=== PATIENT | male | born 1965 | race Caucasian/White ===

== ENCOUNTER 2016-09-05 22:37 | Emergency (ER) | payer MEDICAID ==
[~2016-09-05] VITALS: Ht 185.4 cm; Wt 77.1 kg
[2016-09-05 22:41] VITALS: BP 160/105
[2016-09-05] MEDS ORDERED: ZANTAC150 MG ORAL (23:05)
--- NOTE | 2016-09-05 23:06 | Emergency Room Report ---
History of Present Illness General Chief Complaint: Abdominal Pain Source: Patient Present Illness HPI Is a 51-year-old male with a history of alcohol and drug abuse. He also said that he has a psych history not his medication. He presents with chief complaint of abdominal pain. He called 911 for [employer] [facility] without a problem. Also been drinking tonight. Denies any fever or chills. Denies any nausea vomiting. No diarrhea. No other complaint. Pain is 7/10. Patient History Past Medical History: see triage record, old chart reviewed, psych hx Past Surgical History: other Pertinent Family History: none Social History: Reports: alcohol use, drug use, smoking Immunizations: other Reviewed Nursing Documentation: PMH: Agreed, PSxH: Agreed Nursing Documentation-PMH Past Medical History: No History, Except For Hx Hypertension: Yes History Of Psychiatric Problem: Yes - Paranoid shizophrenia Review of Systems Eye: Denies: blurred vision, eye pain ENT: Denies: ear pain, nose congestion, throat swelling Respiratory: Denies: cough, shortness of breath Cardiovascular: Denies: chest pain, palpitations Gastrointestinal: Reports: abdominal pain, Denies: diarrhea, nausea, vomiting Musculoskeletal: Denies: back pain, joint pain Skin: Denies: rash Neurological: Denies: headache, numbness Endocrine: Denies: increased thirst, increased urine Hematologic/Lymphatic: Denies: easy bruising All Other Systems: negative except mentioned in HPI Physical Exam Vital Signs Date Time Temp Pulse Resp B/P Pulse Ox O2 Delivery O2 Flow Rate FiO2 09/05/16 22:31 97.3 90 16 177/110 97 Room Air vitals normal Sp02 EP Interpretation: reviewed, normal General Appearance: well appearing, no apparent distress, alert Head: normocephalic, atraumatic Eyes: bilateral eye EOMI, bilateral eye PERRL ENT: hearing grossly normal, normal pharynx Neck: full range of motion, supple, no meningismus Respiratory: chest non-tender, lungs clear, normal breath sounds Cardiovascular #1: regular rate, rhythm, no murmur Gastrointestinal: normal bowel sounds, no mass, no organomegaly, no bruit, non- distended, tenderness - Mild, diffuse. No pain however when I use my stethoscope Musculoskeletal: back normal, gait/station normal, normal range of motion Psychiatric: mood/affect normal Skin: warm/dry Medical Decision Making Diagnostic Impression: Primary Impression: Abdominal pain of unknown etiology Additional Impressions: Alcohol abuse Methamphetamine abuse ER Course Patient present with abdominal pain. He is asking for food here. Eating drinking without a problem. No evidence of acute abdomen. No evidence of obstruction. We'll discharge home to Last Vital Signs Date Time Temp Pulse Resp B/P Pulse Ox O2 Delivery O2 Flow Rate FiO2 09/05/16 22:41 97.7 94 20 160/105 99 Room Air Status: improved Disposition: HOME, SELF-CARE Condition: Stable Scripts Ranitidine Hcl* (ZANTAC*) 150 Mg Tablet 150 MG ORAL TWICE A DAY, #30 TAB Prov: RAYNA OCHOA M.D. 09/05/16 Patient Instructions: Abdominal Pain, Adult Additional Instructions: Abstain from drugs and alcohol. Followup with your DrJenny in 7 days. Return if worse. RAYNA OCHOA M.D. Sep 05, 2016 23:06
[2016-09-06 00:02] VITALS: BP 152/102
[2016-09-06] MEDS ORDERED: NKM (01:30)
== END 2016-09-06 00:02 | disposition home or self-care (01) ==
LOC: EDBD 22:37 → EMR 23:13
DX: R10.9 Unspecified abdominal pain (principal); F10.10 Alcohol abuse, uncomplicated; F15.10 Other stimulant abuse, uncomplicated; I10 Essential (primary) hypertension; F17.200 Nicotine dependence, unspecified, uncomplicated
CPT/HCPCS: 99282

== ENCOUNTER 2016-09-06 01:16 | Emergency (ER) | payer MEDICAID ==
[~2016-09-06] VITALS: Ht 185.4 cm; Wt 77.1 kg
[~2016-09-06 01:16] MED LIST: ZANTAC150 MG ORAL
[2016-09-06] MEDS ORDERED: NKM (01:30)
[2016-09-06 02:16] LABS: BASOPHILS % (AUTO) 1.7 % (0.0-2.0); LYMPHOCYTES % (AUTO) 27.4 % (20.0-45.0); MEAN CORPUSCULAR HEMOGLOBIN 27.2 PG (27.0-31.0); MEAN CORPUSCULAR HGB CONC 31.9 G/DL (32.0-36.0); MEAN CORPUSCULAR VOLUME 85 FL (80-99); MEAN PLATELET VOLUME 7.4 FL (6.5-10.1); MONOCYTES % (AUTO) 12.7 % (1.0-10.0); NEUTROPHILS % (AUTO) 58.2 % (45.0-75.0); PLATELET COUNT 158 K/UL (150-450); RED BLOOD COUNT 5.06 M/UL (4.70-6.10); RED CELL DISTRIBUTION WIDTH 15.1 % (11.6-14.8); WHITE BLOOD COUNT 5.3 K/UL (4.8-10.8)
--- NOTE | 2016-09-06 02:22 | Emergency Room Report ---
History of Present Illness General Chief Complaint: Behavioral Complaint Source: Patient Present Illness HPI This is a 51-year-old male with a history of alcohol and drug abuse. He also a history of schizophrenia. He was at a psychiatric facility for months ago. He was at [facility] and called 911 because abdominal pain. He came here he was eating without a problem. Denies any psychiatric issue always here. I discharged him. He left in call 911 because he said now he felt suicidal and hearing voices. No voices is telling him to jump off a bridge. This is ongoing for a while. Denies any other complaint. Police placed him on a 5150. Allergies: Coded Allergies: CODEINE (Verified Allergy, Mild, 09/06/16) Patient History Past Medical History: see triage record, old chart reviewed, psych hx Past Surgical History: other Family History: none Social History: tobacco use, ETOH, drug use Immunizations: other Reviewed Nursing Documentation: PMH: Agreed, PSxH: Agreed Nursing Documentation-PMH Hx Hypertension: Yes History Of Psychiatric Problem: Yes - PTSD, Schizoeffective, Bipolar Review of Systems ENT: Denies: sore throat Cardiovascular: Denies: chest pain, palpitations Gastrointestinal/Abdominal: Denies: diarrhea, nausea, vomiting Musculoskeletal: Denies: back problems Skin: Denies: rash Psychiatric: Reports: hallucinations, suicidal/homicidal ideations Neurological: Denies: KENNEY, seizures All Other Systems: negative except mentioned in HPI Physical Exam Vital Signs Date Time Temp Pulse Resp B/P Pulse Ox O2 Delivery O2 Flow Rate FiO2 09/06/16 01:23 97.5 88 12 141/96 100 Room Air vitals normal Sp02 EP Interpretation: reviewed, normal General Appearance: alert/responsive, no apparent distress, non-toxic Head: normocephalic, atraumatic Eyes: PERRL, EOMI ENT: oropharynx normal Neck: supple/symm/no masses Respiratory: effort normal, no rhonchi, no wheezing Cardiovascular: no murmur, gallop, rub Gastrointestinal: non-tender, no mass, non-distended, no rebound/guarding, normal bowel sounds Musculoskeletal: gait & station normal Neurologic: oriented x3, sensory intact, motor strength/tone normal Suicide Risk Assessment: Suicidal Ideation: Yes Had intent to initiate attempt: Yes Pt's plan for suicide attempt: Yes Has means to complete attempt: No Skin: no rash, normal palpation Medical Decision Making Diagnostic Impression: Primary Impression: Methamphetamine abuse Additional Impressions: Alcohol abuse Psychosis Qualified Codes: F23 - Brief psychotic disorder Suicidal behavior Qualified Codes: R46.89 - Other symptoms and signs involving appearance and behavior Abdominal pain of unknown etiology ER Course Patient presents with alcohol and drug abuse. Patient is currently on a 5150 hold. We'll get psychiatric evaluation in the morning. Last Vital Signs Date Time Temp Pulse Resp B/P Pulse Ox O2 Delivery O2 Flow Rate FiO2 09/06/16 01:23 97.5 88 12 141/96 100 Room Air Status: improved Disposition: XFER TO PSYCH HOSP/UNIT Condition: Stable Referrals: [facility],REFERRING (PCP) RAYNA OCHOA M.D. Sep 06, 2016 02:22
[2016-09-06 02:31] LABS: ACETAMINOPHEN < 10 ug/mL (10-30); ALANINE AMINOTRANSFERASE 72 U/L (3-41); ALBUMIN/GLOBULIN RATIO 1.1 (1.0-2.7); ALCOHOL < 10 mg/dL; ANION GAP 13 (5-15); ASPARTATE AMINO TRANSFERASE 74 U/L (5-40); CALCIUM 9.2 mg/dL (8.6-10.2); CARBON DIOXIDE 28 mEQ/L (20-30); CHLORIDE 99 mEQ/L (98-107); CREATININE 1.1 mg/dL (0.7-1.2); GLOMERULAR FILTRATION RATE > 60 mL/min (>60); HEMOLYSIS 6; POTASSIUM 3.4 mEQ/L (3.4-4.9); SODIUM 140 mEQ/L (135-145); TOTAL PROTEIN 7.4 g/dL (6.6-8.7)
[2016-09-06 04:09] VITALS: BP 125/75
[2016-09-06 06:18] VITALS: BP 128/86
[2016-09-06 08:00] VITALS: BP 127/81
--- NOTE | 2016-09-06 11:03 | Consultation ---
History of Present Illness General Chief Complaint: Behavioral Complaint Present Illness HPI 51 yo male with hx of meth and alcohol use for the pat 8 year. the pt looks much older than his age. the pt was placed on 5150 for dts and was sent to [facility]. He was sent back to our er as the [place] pd was not valid there. During the eval the pt didn't endorse si or psychotic sxs. he stated that "I would like to go [facility]" " I need a drug rehab not a psych hospital" the pt has no suicide attempt in the past, he stated that he is hearing voices only "when i take meth. when I go to psych hospitals they give drugs that I don't need." the pt was rational and is able to answer questions appropriately. the pt has good insight and knows what recourses are available to him. Allergies: Coded Allergies: CODEINE (Verified Allergy, Mild, 09/06/16) Medication History Scheduled No Known Medications* (NKM - No Known Medications*), 0 ., (Reported) Ranitidine Hcl* (Zantac*), 150 MG ORAL TWICE A DAY Patient History History Provided By: Patient, PMD Healthcare decision maker Resuscitation status Advanced Directive on File Past Medical/Surgical History Past Medical/Surgical History: (1) Alcohol abuse (2) Methamphetamine abuse (3) Abdominal pain of unknown etiology Review of Systems All Other Systems: negative except mentioned in HPI Physical Exam General Appearance: no apparent distress, lethargic Neurologic: alert, oriented x 3, responsive, normal mood/affect Last 24 Hour Vital Signs Date Time Temp Pulse Resp B/P Pulse Ox O2 Delivery O2 Flow Rate FiO2 09/06/16 09:07 97.8 89 18 127/81 100 Room Air 09/06/16 08:00 97.8 89 18 127/81 100 Room Air 09/06/16 06:18 95 15 128/86 97 Room Air 09/06/16 04:09 97.2 87 16 125/75 99 Room Air 09/06/16 01:23 97.5 88 12 141/96 100 Room Air Intake and Output 09/05/16 09/06/16 19:00 07:00 # Voids 1 Laboratory Tests Test 09/06/16 02:10 White Blood Count 5.3 K/UL (4.8-10.8) Red Blood Count 5.06 M/UL (4.70-6.10) Hemoglobin 13.8 G/DL (14.2-18.0) L Hematocrit 43.1 % (42.0-52.0) Mean Corpuscular Volume 85 FL (80-99) Mean Corpuscular Hemoglobin 27.2 PG (27.0-31.0) Mean Corpuscular Hemoglobin Concent 31.9 G/DL (32.0-36.0) L Red Cell Distribution Width 15.1 % (11.6-14.8) H Platelet Count 158 K/UL (150-450) Mean Platelet Volume 7.4 FL (6.5-10.1) Neutrophils (%) (Auto) 58.2 % (45.0-75.0) Lymphocytes (%) (Auto) 27.4 % (20.0-45.0) Monocytes (%) (Auto) 12.7 % (1.0-10.0) H Eosinophils (%) (Auto) 0.0 % (0.0-3.0) Basophils (%) (Auto) 1.7 % (0.0-2.0) Sodium Level 140 mEQ/L (135-145) Potassium Level 3.4 mEQ/L (3.4-4.9) Chloride Level 99 mEQ/L (98-107) Carbon Dioxide Level 28 mEQ/L (20-30) Anion Gap 13 (5-15) Blood Urea Nitrogen 15 mg/dL (7-23) Creatinine 1.1 mg/dL (0.7-1.2) Estimat Glomerular Filtration Rate > 60 mL/min (>60) Glucose Level 81 mg/dL (74-106) Calcium Level 9.2 mg/dL (8.6-10.2) Total Bilirubin 0.4 mg/dL (0.0-1.2) Aspartate Amino Transf (AST/SGOT) 74 U/L (5-40) H Alanine Aminotransferase (ALT/SGPT) 72 U/L (3-41) H Alkaline Phosphatase 70 U/L (40-129) Total Protein 7.4 g/dL (6.6-8.7) Albumin 3.9 g/dL (3.5-5.2) Globulin 3.5 g/dL Albumin/Globulin Ratio 1.1 (1.0-2.7) Salicylates Level < 1 mg/dL (10-30) L Urine Opiates Screen Negative (NEGATIVE) Acetaminophen Level < 10 ug/mL (10-30) L Urine Barbiturates Screen Negative (NEGATIVE) Phencyclidine (PCP) Screen Negative (NEGATIVE) Urine Amphetamines Screen Positive (NEGATIVE) H Urine Benzodiazepines Screen Negative (NEGATIVE) Urine Cocaine Screen Negative (NEGATIVE) Urine Marijuana (THC) Screen Positive (NEGATIVE) H Serum Alcohol < 10 mg/dL Height (Feet): 6 Height (Inches): 1.00 Weight (Pounds): 170 Assessment/Plan Status: doing well, stable Assessment/Plan meth induced psychosis -will lift the 5150, as the pt is not at immanent dts/dto -rec to dc the pt -no meds needed - the pt will do to [facility], he will take the bus. Quyen Silvestre M.D. Sep 06, 2016 11:03
[2016-09-06 11:16] VITALS: BP 127/81
== END 2016-09-06 09:11 ==
LOC: EMR 01:56
DX: F15.10 Other stimulant abuse, uncomplicated (principal); F10.10 Alcohol abuse, uncomplicated; F29 Unspecified psychosis not due to a substance or known physiological condition; R45.851 Suicidal ideations; F25.9 Schizoaffective disorder, unspecified; F31.9 Bipolar disorder, unspecified; F43.10 Post-traumatic stress disorder, unspecified; I10 Essential (primary) hypertension; R10.9 Unspecified abdominal pain; Z88.6 Allergy status to analgesic agent
CPT/HCPCS: 36415; 80053; 80300; 80329; 85025